=== PATIENT | male | born 1965 | race African-American/Black ===

== ENCOUNTER 2019-03-12 12:45 | Day surgery (SDC) | payer OTHER ==
[~2019-03-12] VITALS: Ht 177.8 cm; Wt 75.2 kg
[2019-03-12 13:58] VITALS: Ht 177.8 cm; Wt 75.2 kg
[2019-03-12] MEDS ORDERED: LISI-471 PO (14:09)
[2019-03-12] MEDS ORDERED: SIMV5TAB14 PO (14:09)
[2019-03-12] MEDS ORDERED: AMLO-147 PO (14:09)
[2019-03-12] MEDS ORDERED: MAGN400O19 PO (14:09)
[2019-03-12] MEDS ORDERED: OLAN15TA7 PO (14:09)
[2019-03-12] MEDS ORDERED: CHLO118L3 TOP (14:09)
[2019-03-12] MEDS ORDERED: CARB200C PO (14:09)
[2019-03-12] MEDS ORDERED: HYDR25TA6 PO (14:09)
[2019-03-12] MEDS ORDERED: LANO454C2 TP (14:09)
[2019-03-12] MEDS ORDERED: CLON0.5T14 PO (14:09)
[2019-03-12] MEDS ORDERED: FLUT16SP17 NASAL (14:09)
[2019-03-12] MEDS ORDERED: ACET325T40 PO (14:09)
[2019-03-12] MEDS ORDERED: CETI10TA19 PO (14:09)
[2019-03-12] MEDS ORDERED: CITRACAL PO (14:09)
[2019-03-12 15:34] VITALS: BP 142/89; PULSE 84; RESP 25
[2019-03-12] MEDS ORDERED: LIDOCAINE 2% (SDV) 5 ML INJ ONE (15:34)
[2019-03-12] MEDS ORDERED: PROPOFOL 40 ML ONE (15:34)
--- NOTE | 2019-03-12 15:40 | PREAC ---
Date/Time of Note Date/Time of Note DATE: 03/12/19 TIME: 15:39 Anesthesia Eval and Record Evaluation Time Pre-Procedure Interview DATE: 03/12/19 TIME: 15:39 Age 53 Sex male NPO: 8 hrs Preoperative diagnosis screening for colon cancer Planned procedure colonoscopy with biopsy Past Medical History Past Medical History: Includes Cardio: HTN, Dyslipidemia Neuro: Seizure disorder Surgery & Anesthesia Issues No known issue Meds Anticoagulation: No Beta Minerva within 24 hr: No Reason Beta Minerva not given: Pt. not on B-Minerva Reported Medications Calcium Citrate* (Citracal*) 950 Mg Tab, 600 MG PO DAILY, TAB 03/12/19 Hydrochlorothiazide* (Hydrochlorothiazide*) 25 Mg Tab, 25 MG PO DAILY, #30 TAB 03/12/19 Lisinopril* (Lisinopril*) 20 Mg Tablet, 20 MG PO DAILY, #30 TAB 03/12/19 Simvastatin* (Simvastatin*) 5 Mg Tablet, 20 MG PO QHS, #30 TAB 03/12/19 Olanzapine* (Olanzapine*) 15 Mg Tablet, 5 MG PO DAILY, TAB 03/12/19 Amlodipine Besylate* (Amlodipine Besylate*) 10 Mg Tablet, 10 MG PO DAILY, #30 TAB 03/12/19 Chlorhexidine Gluconate* (Chlorhexidine Gluconate*) 118 Ml Liquid, 118 ML TOP, ML 03/12/19 Carbamazepine (Carbamazepine) 200 Mg Cpmp.12hr, 200 MG PO Q12, #60 CAP 03/12/19 Clonazepam* (Clonazepam*) 0.5 Mg Tablet, 0.5 MG PO BID, TAB 03/12/19 Magnesium Hydroxide* (Milk Of Magnesia*) 400 Mg/5 Ml Oral.susp, 30 ML PO DAILY, ML 03/12/19 Acetaminophen (MAPAP) 325 Mg Tablet, 325 MG PO, TAB 03/12/19 Fluticasone Propionate* (Fluticasone Propionate* Nasal) 50 Mcg/[place] - 16 Gm [place].susp, 1 SPRAY NASAL BID, #1 BOTTLE TO EACH NOSTRIL 03/12/19 Cetirizine Hcl* (Cetirizine Hcl*) 10 Mg Tablet, 10 MG PO DAILY, #30 TAB 03/12/19 Wool Alcoh/Min Oil/Aracelis/[place] (Eucerin Creme) 454 Gm Cream.gm., 454 GM TP 03/12/19 Meds reviewed: Yes Allergies Coded Allergies: No Known Drug Allergies (Verified Allergy, Unknown, 03/12/19) Allergies Reviewed: Yes Labs/Studies Labs Reviewed: Reviewed by anesthesiologist test: N/A Pre-procedure Exam Airway: Adequate mouth opening, Adequate thyromental dist Mallampati: Mallampati II Teeth: Normal Lung: Normal Heart: Normal ASA Physical Status ASA physical status: 2 Emergency: None Planned Anesthetic General/MAC: MAC Planned Pain Management Parenteral pain med Pre-operative Attestations Prior to commencing anesthesia and surgery, the patient was re-evaluated, there was verification of: *The patient's identity *The results of appropriate recent lab work and preoperative vital signs *The above evaluation not changing prior to induction *Anesthetic plan, risk benefits, alternative and complications discussed with patient/family; questions answered; patient/family understands, accepts and wishes to proceed. Kenny Mora M.D. Mar 12, 2019 15:40
[2019-03-12] MEDS ORDERED: HYDROmorphONE 1 MG/5 ML IV SYRINGE IV PRN ×3 (16:00)
[2019-03-12] MEDS ORDERED: MIDAZOLAM 1 MG/ML 2 ML INJ IV PRN (16:00)
[2019-03-12] MEDS ORDERED: LABETALOL HCL 20MG INJ IV PRN (16:00)
[2019-03-12] MEDS ORDERED: OXYCODONE/ACETAMINOPHEN (5/325) TAB PO PRN ×2 (16:00)
[2019-03-12] MEDS ORDERED: MEPERIDINE 25 MG INJ IV PRN (16:00)
[2019-03-12] MEDS ORDERED: EPHEDrine SULFATE 50 MG/5 ML SYG IV PRN (16:00)
[2019-03-12] MEDS ORDERED: ALBUTEROL 0.083% (NEB) 2.5 MG/3 ML AMP HHN PRN (16:00)
[2019-03-12] MEDS ORDERED: TRIMETHOBENZAMIDE 100 MG/ML VIAL IM PRN (16:00)
[2019-03-12] MEDS ORDERED: FENTAnyl 50 MCG/ML VIAL IV PRN ×3 (16:00)
[2019-03-12] MEDS ORDERED: DIPHENHYDRAMINE 50 MG INJ IV PRN (16:00)
[2019-03-12] MEDS ORDERED: IPRATROPIUM (NEB) 0.5 MG/2.5 ML AMP HHN PRN (16:00)
[2019-03-12] MEDS ORDERED: ONDANSETRON 4 MG INJ IV PRN (16:00)
[2019-03-12] MEDS ORDERED: hydrALAzine 20 MG INJ IV PRN (16:00)
--- NOTE | 2019-03-12 16:02 | PAC ---
Date/Time of Note Date/Time of Note DATE: 03/12/19 TIME: 16:02 Post-Anesthesia Notes Post-Anesthesia Note Last documented vital signs rr;14 bp;141/75 temp:98.6 rr;14 Activity: WNL Respiratory function: WNL Cardiovascular function: WNL Mental status: Baseline Pain reasonably controlled: Yes Hydration appropriate: Yes Nausea/Vomiting absent: Yes Kenny Mora M.D. Mar 12, 2019 16:02
--- NOTE | 2019-03-12 16:10 | HPN ---
Date/Time of Note Date/Time of Note DATE: 03/12/19 TIME: 16:10 Interval H&P Admission Note Pt. seen H&P reviewed: No system changes JUAN MANUEL LOVE Mar 12, 2019 16:10
[2019-03-12 16:30] VITALS: BP 125/82; RESP 16
== END 2019-03-12 17:23 | disposition home or self-care (01) ==
LOC: GIL 12:45
PROVIDERS: ATTEND Internal Medicine Gastroenterology
DX: Z12.11 Encounter for screening for malignant neoplasm of colon (principal); K64.8 Other hemorrhoids; I10 Essential (primary) hypertension
CPT/HCPCS: 45378; Z7610